=== PATIENT | male | born 1990 ===

== ENCOUNTER 2016-10-16 23:27 | Observation (INO) | payer SELFPAY ==
[2016-10-16 23:34] VITALS: BMI 27.3
--- NOTE | 2016-10-16 23:42 | ED PDOC ---
Arrival/HPI - General Time Seen by Provider: 10/16/16 23:32 Historian: Patient, EMS - History of Present Illness Narrative History of Present Illness (Text): 10/16/16 23:39 Sarwat Stout is a 26 year old male who presents to the Emergency department brought in by EMS for alcohol intoxication. Patient admits to drinking alcohol tonight. Patient denies any suicidal ideation, fever, chills, chest pain, shortness of breath, nausea, vomiting, diarrhea, urinary symptoms, back pain, neck pain, headache, dizziness, or any other complaints. Time/Duration: Other (tonight) Symptom Onset: Gradual Symptom Course: Unchanged Activities at Onset: Rest, Light Context: Home Past Medical History - Provider Review Nursing Documentation Reviewed: Yes - Cardiac Hx Cardiac Disorders: No - Pulmonary Hx Respiratory Disorders: No - Renal Hx Renal Disorder: No Hx Dialysis: No Hx Kidney Stones: No - Endocrine/Metabolic Hx Endocrine Disorders: No - Psychiatric Hx Substance Use: No - Anesthesia Hx Anesthesia: No Hx Anesthesia Reactions: No Hx Malignant Hyperthermia: No Family/Social History - Physician Review Nursing Documentation Reviewed: Yes Family/Social History: No Known Family HX Smoking Status: Never Smoked Hx Alcohol Use: No Hx Substance Use: No Allergies/Home Meds Allergies/Adverse Reactions: Allergies No Known Allergies Allergy (Verified 08/24/15 18:55) Review of Systems - Physician Review All systems were reviewed & negative as marked: Yes - Review of Systems Constitutional: Normal. absent: Fevers Eyes: Normal ENT: Normal Respiratory: Normal. absent: SOB, Cough Cardiovascular: Normal. absent: Chest Pain Gastrointestinal: Normal. absent: Abdominal Pain, Diarrhea, Nausea, Vomiting Genitourinary Male: Normal. absent: Dysuria, Frequency, Hematuria, Urinary Output Changes Musculoskeletal: Normal. absent: Back Pain, Neck Pain Skin: Normal. absent: Rash Neurological: Normal. absent: Headache, Dizziness Endocrine: Normal Hemo/Lymphatic: Normal Psychiatric: Other (+alcohol intoxication). absent: Suicidal Ideation Physical Exam Vital Signs Reviewed: Yes Vital Signs Temp Pulse Resp BP Pulse Ox 10/16/16 23:32 97.6 F 84 18 140/84 97 Temperature: Afebrile Blood Pressure: Normal Pulse: Regular Respiratory Rate: Normal Appearance: Positive for: Well-Appearing, Comfortable Pain Distress: None Mental Status: Positive for: Alert and Oriented X 3 - Systems Exam Head: Present: Atraumatic, Normocephalic Pupils: Present: PERRL Extroacular Muscles: Present: EOMI Conjunctiva: Present: Normal Mouth: Present: Moist Mucous Membranes Neck: Present: Normal Range of Motion Respiratory/Chest: Present: Clear to Auscultation, Good Air Exchange. No: Respiratory Distress, Accessory Muscle Use Cardiovascular: Present: Regular Rate and Rhythm, Normal S1, S2. No: Murmurs Abdomen: Present: Normal Bowel Sounds. No: Tenderness, Distention, Peritoneal Signs Back: Present: Normal Inspection Upper Extremity: Present: Normal Inspection. No: Cyanosis, Edema Lower Extremity: Present: Normal Inspection. No: Edema Neurological: Present: GCS=15, CN II-XII Intact, Speech Normal Skin: Present: Warm, Dry, Normal Color. No: Rashes Psychiatric: Present: Alert, Oriented x 3, Intoxicated Medical Decision Making ED Course and Treatment: 10/16/16 23:39 Impression: 26 year old male brought in for alcohol intoxication. Differential Diagnosis include but are not limited to: alcohol intoxication Plan: -- Reassess and disposition Progress Notes: ED OBSERVATION Discharge: Yes Date of observation admission: 10/17/16 Time of observation admission: 23:40 - Observation admission statement Patient is being placed in observation because:: alcohol intoxication - Goals of Observation Goals of observation are:: sobriety, observe for signs of withdrawal - Progress Note Progress Note: 10/16/16 23:40 Pt brought in for alcohol intoxication. Resting comfortably, no complaints. Will observe pending sobriety. 10/17/16 01:40 Pt resting comfortably, no new complaints. 10/17/16 03:35 Pt sleeping currently, no acute distress. 10/17/16 05:04 Pt resting comfortably, no new complaints. 10/17/16 05:23 Pt is awake, alert, with steady gait. Pt stable for d/c. Pt d/c home with friend. - Scribe Statement The provider has reviewed the documentation as recorded by the Scribcurly Rodriguez All medical record entries made by the Scribe were at my direction and personally dictated by me. I have reviewed the chart and agree that the record accurately reflects my personal performance of the history, physical exam, medical decision making, and the department course for this patient. I have also personally directed, reviewed, and agree with the discharge instructions and disposition. Disposition/Present on Arrival - Present on Arrival Any Indicators Present on Arrival: No History of DVT/PE: No History of Uncontrolled Diabetes: No Urinary Catheter: No History Surgical Site Infection Following: None - Disposition Have Diagnosis and Disposition been Completed?: Yes Diagnosis: Alcohol intoxication Disposition: HOME/ ROUTINE Disposition Time: 05:20 Patient Plan: Discharge Condition: STABLE
[2016-10-17 06:56] VITALS: BP 130/77; PULSE 88; RESP 16; TEMP 97.5; O2SAT 100
== END 2016-10-17 05:19 | disposition home or self-care (01) ==
LOC: ED 23:27 → EROBSV 23:40
PROVIDERS: ADMIT Emergency Medicine; ATTEND Emergency Medicine
DX: F10.129 Alcohol abuse with intoxication, unspecified (principal)
CPT/HCPCS: 99282; G0378